=== PATIENT | male | born 1990 | race Caucasian/White ===

== ENCOUNTER 2017-03-18 07:37 | Emergency (ER) | payer BC ==
[2017-03-18] MEDS ORDERED: HYDROcodone/ACETAMIN 5-325 MG* 1 TAB PO ONE (07:56)
[2017-03-18] MEDS ORDERED: Tetan/Diph/Pertus SYR(Tdap)* 0.5 ML SYR(BOOSTRIX) use SYR IM ONE (07:56)
[2017-03-18] MEDS ORDERED: Lidocaine 2% PF * 5 ML VIAL INJ ONE ×2 (07:56→11:48)
--- NOTE | 2017-03-18 10:48 | RAD ---
Indication: LEFT fourth finger pain following traumatic injury. Laceration at the metacarpal phalangeal joint region. Comparison: No relevant prior exams available on the [facility] PACS for comparison. Technique: 3 views LEFT fourth finger REPORT AND IMPRESSION: Circumferential appearing soft tissue lucency at the base of the finger at the level of the mid diaphysis of the proximal phalanx consistent with soft tissue laceration corresponding with provided history. A few punctate densities are evident along the laceration concerning for retained debris at the laceration margins. Fusiform swelling most prominent at the proximal interphalangeal joint level. Negative for fracture or articular malalignment.
--- NOTE | 2017-03-18 11:01 | UC ---
Hand/Wrist HPI - HPI Summary HPI Summary: PT WAS CHECKING SOMETHING ON HIS ROOF TODAY. WHEN HE CAME DOWN THE LADDER HE CAUGHT HIS [place] RING ON A NAIL AND SUSTAINED A DEEP LACERATION TO LEFT 4TH FINGER. UNKNOWN DATE OF LAST TETANUS. - History Of Current Complaint Chief Complaint: UCUpperExtremity Stated Complaint: RING STUCK ON FINGER Time Seen by Provider: 03/18/17 07:51 Hx Obtained From: Patient Onset/Duration: Sudden Onset, Lasting Hours, Still Present Severity Initially: Moderate Severity Currently: Moderate Pain Intensity: 1 Pain Scale Used: 0-10 Numeric Character Of Pain: Sharp Aggravating Factor(s): Movement Alleviating Factor(s): Nothing Associated Signs And Symptoms: Positive: Swelling. Negative: Numbness/Tingling - Allergies/Home Medications Allergies/Adverse Reactions: Allergies Allergy/AdvReac Type Severity Reaction Status Date / Time No Known Allergies Allergy Verified 03/18/17 07:51 PMH/Surg Hx/FS Hx/Imm Hx Previously Healthy: Yes - Surgical History Surgical History: None - Family History Known Family History: Positive: Hypertension - Social History Alcohol Use: None Substance Use Type: None Smoking Status (MU): Current Every Day Smoker Type: Cigarettes Amount Used/How Often: 1/2 ppd Review of Systems Constitutional: Negative Skin: Other - LACERATION Respiratory: Negative Cardiovascular: Negative Gastrointestinal: Negative Musculoskeletal: Decreased ROM, Edema All Other Systems Reviewed And Are Negative: Yes Physical Exam Triage Information Reviewed: Yes Appearance: Well-Appearing, No Pain Distress, Well-Nourished Vital Signs: Initial Vital Signs Temp 99.3 F 03/18/17 07:51 Pulse 95 03/18/17 07:51 Resp 16 03/18/17 07:51 BP 145/92 03/18/17 07:51 Pulse Ox 98 03/18/17 07:51 Vital Signs Reviewed: Yes Eyes: Positive: Conjunctiva Clear ENT: Positive: Hearing grossly normal Neck: Positive: Supple Respiratory: Positive: No respiratory distress, No accessory muscle use Cardiovascular: Positive: Pulses Normal Abdomen Description: Positive: Soft Musculoskeletal: Positive: ROM Limited @ - LEFT 4TH FINGER FLEXION, Edema @ - LEFT 4TH FINGER, Other: - [place] INTACT Neurological: Positive: Alert Psychological: Positive: Age Appropriate Behavior Skin: Positive: Other - 4 CM IRREGULAR LACERATION VOLAR SURFACE LEFT 4TH FINGER OVERLYING MCP JOINT. Negative: rashes Procedures - Laceration/Wound Repair 1 Location: upper extremity - LEFT 4TH FINGER Description: Irregular Anesthesia: Digital, 2.0% Length, Depth and Shape: 4CM LONG, 5MM DEEP, IRREGULAR Betadine Prep?: Yes Laceration/Wound Explored: contaminated, foreign body removed Closure: Single Layer - 10 SIMPLE INTERRUPTED SUTURES Debridement: minimal Suture Type: Prolene - 5-0 Sterile Dressing Applied?: Yes Diagnostics - Radiology LEFT 4TH FINGER XRAY Xray Interpretation: Positive (See Comments) - Circumferential appearing soft tissue lucency at the base of the finger at the level of the mid diaphysis of the proximal phalanx consistent with soft tissue laceration corresponding with provided history. A few punctate densities are evident along the laceration concerning for retained debris at the laceration margins. Fusiform swelling most prominent at the proximal interphalangeal joint level. Negative for fracture or articular malalignment. Radiology Interpretation Completed By: Radiologist Hand/Wrist Course/Dx - Course Course Of Treatment: PT PRESENTS AFTER CATCHING [place] RING ON A NAIL WHILE COMING DOWN A LADDER. HAS DEEP LACERATION VOLAR SURFACE LEFT 4TH FINGER AT MCP JOINT. POSSIBLE FLEXOR TENDON DAMAGE. RING REMOVED USING RING CUTTER. XRAYS NEG FOR BONY INJURY. TDAP BOOSTED. DISCUSSED WITH ORTHO - ADVISED LAC REPAIR AND F/ U WITH HAND SURGEON TOMORROW. KEFLEX AND NORCO RX. - Differential Dx/Diagnosis Provider Diagnoses: 1. FINGER LACERATION- REPAIRED. 2. POSSIBLE FLEXOR TENDON INJURY. 3. TDAP BOOSTER - Physician Notifications Discussed Patient Care With: Bj Zamudio - ADVISED TO REPAIR LAC AND HAVE PT CALL FOR APPT WITH DR. KWONG TOMORROW Time Discussed With Above Provider: 11:45 Instructed by Provider To: Have Pt Call For Appt. Discharge - Discharge Plan Condition: Stable Disposition: HOME Prescriptions: Cephalexin CAP* [Keflex 500 CAP*] 1,000 mg PO BID #28 cap HYDROcodone/ACETAMIN 5-325 MG* [[place] 5-325 TAB*] 1 tab PO Q6H PRN #15 tab MDD 4 PRN Reason: Pain Patient Education Materials: Finger Laceration (ED), Tendon Laceration (ED) Referrals: Patti Kwong MD [Medical Doctor] - 1 Day Additional Instructions: CALL ORTHO TODAY FOR AN APPT TO BE SEEN BY DR. KWONG TOMORROW. CONCERN FOR TENDON INJURY. KEEP THE DRESSING IN PLACE UNTIL SEEN BY ORTHO. TAKE THE ANTIBIOTIC PRESCRIBED. SEEK FOLLOW-UP IF YOU DEVELOP SPREADING REDNESS OF THE SKIN, PURULENT DRAINAGE, FEVER, INCREASED PAIN OR ANY OTHER CONCERNING SYMPTOMS. CALL THE NUMBER BELOW FOR ASSISTANCE IN ESTABLISHING WITH A PCP An additional resource available to assist in finding the appropriate physician for your health care needs is the [facility] ([facility]). You may contact them by calling [phone]. TETANUS IMMUNIZATION GIVEN (TDAP): You have been given an immunization against tetanus. Please record this in your records. In general, a booster is needed only once every 10 years. The tetanus shot protects against tetanus or "lockjaw," which is a complication of certain wound infections (the tetanus shot cannot protect against the actual infection). The immunization site may become warm and red due to local reaction. If this occurs, apply warm compresses and take aspirin or ibuprofen to reduce inflammation and discomfort. Return for evaluation if the reaction becomes severe.
[2017-03-18 12:57] VITALS: BP 140/70
== END 2017-03-18 12:59 | disposition home or self-care (01) ==
LOC: UCEAST 07:37
DX: S61.215A Laceration without foreign body of left ring finger without damage to nail, initial encounter (principal); Z23 Encounter for immunization; X58.XXXA Exposure to other specified factors, initial encounter; Y93.89 Activity, other specified; Y92.008 Other place in unspecified non-institutional (private) residence as the place of occurrence of the external cause; Z72.0 Tobacco use
CPT/HCPCS: 12002; 73140; 90471; 90715; 99203; G0463